=== PATIENT | female | born 1950 | race Caucasian/White ===

== ENCOUNTER 2019-02-15 06:51 | Observation (INO) ==
--- NOTE | 2019-02-15 07:32 | Anesthesia Evaluation PreOp ---
Date of Encounter: 02/15/19 Time of Encounter: 07:30 - Past History Planned Operation: Bronchoscopy Cardiac History: HTN, Hyperlipidemia Pulmonary History: Former smoker, COPD (on oxygen 2L prn and at night) DEPUTY CONTROLLER History: Other (anxiety, depression) Other Medical History: Diabetes Type II, Thyroid (hyperthyroidism, treated with radioactive iodine and is now hypothyroid), GERD, Other (gastic ulcer) Anesthesia History: No Prior Anesthetic Complications, Past Anesthesia (axel, csection x3, hysterectomy, RICHAR, appy, christy cataract, R fibular fx) Alcohol Use: none Drug use: none Medications and Allergies Albuterol Sulfate [Proair Hfa] 2 puff IH QID PRN 12/04/15 [History] Atorvastatin [Lipitor] 40 mg PO DAILY 12/04/15 [History] BuPROPion XL (24 HR) [Wellbutrin Xl] 300 mg PO QAM 12/04/15 [History] Canagliflozin [Invokana] 300 mg PO DAILY 12/04/15 [History] Fluticasone Propionate Nasal [Flonase] 50 mcg NS DAILY 12/04/15 [History] Gabapentin [Neurontin] 600 mg PO BID 12/04/15 [History] Gabapentin [Neurontin] 900 mg PO QPM 12/04/15 [History] Glimepiride [Amaryl] 2 mg PO QAM 12/04/15 [History] Ipratropium/Albuterol Neb [Duoneb] 3 ml IH Q6HR PRN 12/04/15 [History] Levothyroxine [Synthroid] 125 mcg PO QAM 12/04/15 [History] Lisinopril/Hydrochlorothiazide [Zestoretic 20-25 mg Tablet] 1 each PO DAILY 12/04/15 [History] Loratadine [Claritin] 10 mg PO DAILY 12/04/15 [History] Montelukast [Singulair] 10 mg PO QPM 12/04/15 [History] Omeprazole [PriLOSEC] 20 mg PO DAILY 12/04/15 [History] Oxygen 2 l NS HS 12/04/15 [History] Paroxetine [Paxil] 40 mg PO QAM 12/04/15 [History] Roflumilast [Daliresp] 500 mcg PO DAILY 12/04/15 [History] Sitagliptin Phos/Metformin HCl [Janumet 50-1,000 mg Tablet] 1 each PO BID 12/04/15 [History] Tiotropium [Spiriva] 18 mcg IH DAILY 12/04/15 [History] Tizanidine HCl 2 mg PO BID 12/04/15 [History] Budesonide/Formoterol 80/4.5 [Symbicort 80/4.5] 2 puff IH BIDR inhaler 12/10/15 [Rx] Heparin 5,000 unit SQ BID 10 Days vial 12/10/15 [Rx] Insulin LISPRO [HumaLOG] 0 units SQ HS #0 vial 12/10/15 [Rx] Insulin LISPRO [HumaLOG] 0 units SQ TIDAC #0 vial 12/10/15 [Rx] Levofloxacin [Levaquin] 750 mg PO Q48H #5 tablet 12/10/15 [Rx] Polyethylene Glycol 3350 [MiraLAX] 17 gm PO DAILY #0 powd.pack 12/10/15 [Rx] predniSONE [PredniSONE] 40 mg PO DAILY 7 Days tablet 12/10/15 [Rx] Allergy/AdvReac Type Severity Reaction Status Date / Time adenosine Allergy Difficulty Verified 12/04/15 13:49 Breathing - Meds/Allergy Pre-op Review Medications Reviewed: Yes Allergies Reviewed: Yes Beta Blockers on Current Med List: No Anesthesia Results - Labs Laboratory Tests 02/02/19 13:11 WBC 9.5 Hgb 13.5 Hct 43.1 Plt Count 232 - Imaging EKG: report reviewed (SINUS RHYTHM RIGHT BUNDLE BRANCH BLOCK Electronically Signed On 02-03-2019 15:23:51 EDT by Maritza Robertson) Additional studies: ECHO 01/2018 Impressions: LVEF 60%. Mild left ventricular diastolic dysfunction. Normal right ventricular structure and function. No significant valvular dysfunction. No pulmonary hypertension. Anesthesia Exam O2 Sat Height 1.55 m Weight 78.925 kg O2 Sat by Pulse Oximetry 91 Vital Signs Temp Pulse Resp BP Pulse Ox 98.1 F 83 18 135/69 91 02/15/19 07:13 02/15/19 07:13 02/15/19 07:13 02/15/19 07:13 02/15/19 07:13 Weight: 75kg NPO (# of Hours): MN - HEENT Pupil (Motor): Pupils equal, EOMI Mallampati: II Teeth: Edentulous Oral Opening: Greater than 3 - DEPUTY CONTROLLER LOC: Oriented DEPUTY CONTROLLER Motor: Normal RUE, Normal LUE, Normal RLE, Normal LLE, Normal Face DEPUTY CONTROLLER Sensory: Normal: RUE, LUE, RLE, LLE, Face - Cardiac Rhythm: Regular - Pulmonary Breath Sounds: bilateral Clear Respiratory Effort: Symmetrical Anesthesia Assess/Plan ASA Score: 4 Level of consciousness: Cooperative Anesthetic Plan: General Monitoring Plan: Standard Monitors Recovery Plan: PACU
[2019-02-15] MEDS: Ringers Solution, Lactated 1,000 ML IVC SCH ×2 (07:33→23:39)
[2019-02-15] MEDS ORDERED: Albuterol 2.5 MG/3 ML NEBULIZER ONE ×2 (07:43→09:44)
[2019-02-15] MEDS ORDERED: Albuterol 2.5 MG/3 ML NEBULIZER IH ONE ×2 (07:49→09:44)
[2019-02-15] MEDS ORDERED: methylPREDNISolone 125 MG/2 ML VIAL IVP ONE (09:15)
[2019-02-15] MEDS ORDERED: methylPREDNISolone 125 MG/2 ML VIAL ONE (09:18)
[2019-02-15 10:39] LABS: Source of Body Fluid BAL LUL
[2019-02-15 12:38] LABS: Appearance of Body Fluid Slightly Hazy (Clear)
[2019-02-15 12:39] LABS: Volume of Body Fluid 23 mL
[2019-02-15] MEDS ORDERED: *HR* Propofol 200 MG/20 ML VIAL IVP ONE (13:09)
[2019-02-15] MEDS ORDERED: *HR* Propofol 500 MG/50 ML BOTTLE IVC ONE (13:09)
[2019-02-15] MEDS ORDERED: Lidocaine -MPF 4% 5 ML AMPUL INFILT ONE (13:09)
[2019-02-15] MEDS ORDERED: *HR* Succinylcholine 200 MG/10 ML VIAL IVP ONE (13:09)
[2019-02-15] MEDS ORDERED: Ondansetron 4 MG/2 ML VIAL IVP ONE (13:09)
[2019-02-15] MEDS ORDERED: *HR* Phenylephrine 10 MG/ML VIAL IVC ONE (13:09)
[2019-02-15] MEDS ORDERED: Lidocaine 2% Syringe 100 MG/5 ML IV ONE (13:09)
[2019-02-15] MEDS ORDERED: EPHEDrine 50 MG/ML VIAL IVP ONE (13:09)
--- NOTE | 2019-02-15 14:14 | Anesthesia Evaluation Post Op ---
Date of Encounter: 02/15/19 Time of Encounter: 14:12 - Vital Signs Vital Signs: Vital Signs/O2 Sat/Glucose, Most Current Temp Pulse Resp BP Pulse Ox 02/15/19 13:11 97.7 F 96 16 108/71 92 02/15/19 11:05 113 18 104/79 90 02/15/19 10:35 115 20 114/78 91 - Lungs Lungs: Wheezes, Treatment Ordered - Airway Airway: Non-obstructed - Cardiovascular Regular Rate - Mental Status Mental Status: Alert & Oriented, Answers Appropriately - Nausea Vomiting Nausea Vomiting: Not Present - Hydration Hydration: Tolerates oral liquids - Discharge PostOp Status: Transfer Patient to floor (pt hypoxic post op with wheezing, shortness of breath and cough, Dr Ward treated with solumedrol and there was no improvement with additional albuterol and duoneb treatments, pt was admitted for further management)
[2019-02-15] MEDS ORDERED: Naloxone 0.4 MG/ML INJ IVP PRN (16:52)
--- NOTE | 2019-02-15 16:52 | Internal Med History&Physical ---
Date of Encounter: 02/15/19 Time of Encounter: 03:00 Internal Medicine - H&P: HPI Chief complaint: SOB History of present illness: Ms. Miranda is a 68 year old female COPD, diabetes, GERD, hyperlipidemia, hypertension, thyroid disease who was sent from the pulmonary bronchoscopy [facility] she underwent bronchoscopy for possible lung lesion. Postprocedure the patient started complaining of difficulty breathing , pulmonary requested the patient be admitted for observation due to a concern of bronchospasm, she will be admitted for observation for 24 hours. pulmonary also requested to start the patient on respiratory treatment and steroids. Past Med Surg Social Fam HX - Past Medical History Medical history: COPD, diabetes, GERD, hyperlipidemia, hypertension, thyroid disease Additional medical history: stomach ulcers Psychiatric history: anxiety, depression - Past Surgical History Surgical History: angioplasty/stent, , cataract, cholecystectomy, hysterectomy, orthopedic, other Additional surgical history: right fibula fx - heart cath with no stents - Social History Smoking Status: Former smoker Smokeless Tobacco Status: No Alcohol use: none Drug use: none - Family History Mother Family Member Ethnicity: Non- Living Status: Still Living Hx Family Cardiac Disorders: Yes Hx Family Respiratory Disorders: No Hx Family Cancer: No Hx Family GI Disorders: Yes Hx Family Endocrine Disorder: Yes Hx Family Neuromuscular Disorders: No Hx Family Neurologic Disorders: No Hx Family HEENT Disorders: No Hx Family Autoimmune Disorders: No Internal Medicine - H&P: Meds Albuterol Sulfate [Proair Hfa] 2 puff IH QID PRN 12/04/15 [History] Atorvastatin [Lipitor] 40 mg PO QPM 12/04/15 [History] Canagliflozin [Invokana] 300 mg PO DAILY 12/04/15 [History] Fluticasone Propionate Nasal [Flonase] 1 mcg NS DAILY 12/04/15 [History] Glimepiride [Amaryl] 2 mg PO QAM 12/04/15 [History] Ipratropium/Albuterol Neb [Duoneb] 3 ml IH Q6HR PRN 12/04/15 [History] Levothyroxine [Synthroid] 125 mcg PO QAM 12/04/15 [History] Loratadine [Claritin] 10 mg PO DAILY 12/04/15 [History] Montelukast [Singulair] 10 mg PO QPM 12/04/15 [History] Omeprazole [PriLOSEC] 20 mg PO DAILY 12/04/15 [History] Oxygen 2 l NS HS 12/04/15 [History] Tiotropium [Spiriva] 18 mcg IH DAILY 12/04/15 [History] Bupropion HCl [Wellbutrin Xl] 300 mg PO QAM 02/16/19 [History] Dulaglutide [Trulicity] 0.75 mg SQ FR 02/16/19 [History] Fluticasone/Umeclidin/Vilanter [Trelegy Ellipta 100-62.5-25] 1 puff PO DAILY 02/16/19 [History] Gabapentin 800 mg PO TID 02/16/19 [History] Lisinopril [Zestril] 5 mg PO DAILY 02/16/19 [History] PARoxetine HCl [Paroxetine HCl] 10 mg PO QAM 02/16/19 [History] PARoxetine HCl [Paroxetine HCl] 40 mg PO QAM 02/16/19 [History] Sitagliptin Phos/Metformin HCl [Janumet 50-500 mg Tablet] 1 tab PO DAILY 02/16/19 [History] Tizanidine HCl 4 mg PO 2-3XD PRN 02/16/19 [History] Triamcinolone Acet 0.1% CRM [Kenalog] 1 appl TP BID PRN 02/16/19 [History] Allergy/AdvReac Type Severity Reaction Status Date / Time adenosine Allergy Difficulty Verified 12/04/15 13:49 Breathing All Systems PM: A 10-system review of systems was performed and is negative for pertinent findings except as documented above in the HPI. - Constitutional Vitals: Temp Pulse Resp BP Pulse Ox 97.7 F 95 16 133/72 95 02/15/19 15:24 02/15/19 15:24 02/15/19 15:24 02/15/19 15:24 02/15/19 15:24 General appearance: Present: A&O X 3 Exam: See below - Head Head exam: Present: atraumatic, normocephalic - Eye Eye exam: Present: PERRL, conjuntiva pink, sclera anicteric Pupils: Present: PERRL - Neck Neck exam general surgery: Present: supple, trachea midline. Absent: lymphadenopathy - Respiratory Respiratory exam: Present: wheezes. Absent: accessory muscle use, rales, rhonchi - Cardiovascular Cardiovascular exam: Present: RRR, +S1, +S2. Absent: diastolic murmur, gallop, rubs, systolic murmur - GI/Abdominal GI/Abdominal exam: Present: normal bowel sounds, soft, no peritoneal signs. Absent: distended, tenderness - Extremities Exam Extremities exam: Present: warm, radial pulses palpable and symmetrical. Absent: calf tenderness, cyanotic, pedal edema - Neurological Exam Neurological exam: Present: CN II-XII intact, oriented X3, no focal deficits. Absent: pronater drift, facial droop, speech deficit - Skin Skin exam: Present: dry, intact Internal Med - H&P Results - Labs CBC & Chem 7: 02/16/19 04:15 02/16/19 04:15 - Impressions ITS Impressions Chest X-Ray 02/15/19 00:00 IMPRESSION: 1. No evidence of pneumothorax status post biopsy. 2. Patchy density involving the lingula and left base may represent known lung mass. D/ / 02/15/2019 08:56:49 Mando Arellano MD / earnold Interpreting Provider: Mando Arellano MD - Assessment and Plan (1) Bronchospasm Current Visit: Yes Status: Acute Assessment and plan: Pulmonary bronchoscopy [facility] she underwent bronchoscopy for possible lung lesion. Postprocedure the patient started complaining of difficulty breathing , pulmonary requested that the patient be admitted for observation due to a concern of bronchospasm, she will be admitted for observation for 24 hours. Pulmonary also requested to start the patient on respiratory treatment and steroids. As discussed with pulmonary very suggested for patient to be discharged on by mouth steroids over the next 5 days and then follow-up as an outpatient. (2) History of bronchoscopy Current Visit: Yes Status: Acute Assessment and plan: Bronchoscopy results revealed possible left lung lesion, vision or follow-up with pulmonary team as an outpatient (3) Hypertension Current Visit: Yes Status: Chronic Assessment and plan: We will continue home medication Qualifiers: Hypertension type: essential hypertension Qualified Code(s): I10 - Essential (primary) hypertension (4) COPD (chronic obstructive pulmonary disease) Current Visit: No Status: Chronic Assessment and plan: We will start the patient on dueneb start home inhalers Qualifiers: COPD type: COPD with acute exacerbation Qualified Code(s): J44.1 - Chronic obstructive pulmonary disease with (acute) exacerbation (5) Diabetes Current Visit: Yes Status: Acute Assessment and plan: We will continue home medication Glimepiride [Amaryl] 2 mg PO QAM and start the patient and insulin sliding scale was covered Qualifiers: Qualified Code(s): E11.9 - Type 2 diabetes mellitus without complications (6) GERD (gastroesophageal reflux disease) Current Visit: Yes Status: Acute Assessment and plan: We will continue Omeprazole [PriLOSEC] 20 mg PO DAILY Qualifiers: Qualified Code(s): K21.9 - Gastro-esophageal reflux disease without esophagitis (7) Hypothyroidism Current Visit: Yes Status: Acute Assessment and plan: We will continue home thyroxine Qualifiers: Qualified Code(s): E03.9 - Hypothyroidism, unspecified (8) DVT prophylaxis Current Visit: No Status: Acute Assessment and plan: The patient is ambulatory and most likely to be discharged in the next 24 hours (9) Hyperlipidemia Current Visit: Yes Status: Acute Assessment and plan: We will continue home statin Qualifiers: Qualified Code(s): E78.5 - Hyperlipidemia, unspecified - Time Spent With Patient Total time spent is greater than 50% in coordination of care (as documented) at patient's floor/unit and/or counseling patient:
[2019-02-15] MEDS ORDERED: Ondansetron 4 MG/2 ML VIAL IVP PRN (16:58)
[2019-02-15] MEDS ORDERED: Acetaminophen 325 MG TABLET PO PRN (16:58)
[2019-02-15] MEDS ORDERED: *HR* HYDROcodone/Acet 5/325 mg TABLET PO PRN (16:58)
[2019-02-15] MEDS: Ipratropium/Albuterol Neb 3 ML IH SCH ×2 (19:53→23:08)
[2019-02-15] MEDS ORDERED: tiZANidine 4 MG TABLET PO SCH (21:00)
[2019-02-15] MEDS: Gabapentin 400 MG CAPSULE PO SCH (21:02)
[2019-02-15] MEDS: Fluticasone Propionate Nasal 50 MCG/SPRAY BOTTLE NS SCH (21:02)
[2019-02-16] MEDS ORDERED: MethylPREDNISolone 40 MG/ML VIAL IVP SCH
[2019-02-16] MEDS ORDERED: Triamcinolone Acet 0.1% CRM 15 GM TUBE TP PRN (02:55)
[2019-02-16] MEDS ORDERED: Ipratropium/Albuterol Neb 3 ML IH PRN (02:55)
[2019-02-16] MEDS ORDERED: tiZANidine 4 MG TABLET PO PRN (02:55)
[2019-02-16] MEDS: Ipratropium/Albuterol Neb 3 ML IH SCH ×3 (03:42→11:21)
[2019-02-16 05:13] LABS: Basophils % 0.1 %; Hematocrit 42.7 % (35.3-44.9); Hemoglobin 13.5 g/dL (11.5-15.4); Immature Granulocytes % 0.4 % (0-4); Lymphocytes # 1.1 K/mcL (0.6-4.6); Lymphocytes % 7.5 %; Mean Corpuscular HGB Conc 31.6 g/dL (31.6-35.5); Mean Corpuscular Hemoglobin 28.5 pg (28.0-33.3); Mean Corpuscular Volume 90.1 fL (83.0-100.0); Mean Platelet Volume 10.5 fL (9.4-12.4); Monocytes # 0.5 K/mcL (0.0-1.3); Monocytes % 3.4 %; Platelet Count 239 K/mcL (140-400); Red Blood Count 4.74 M/mcL (3.82-4.97); Red Cell Distribution Width 13.6 % (11.5-14.5); Segmented Neutrophils % 88.6 %
[2019-02-16 05:31] LABS: Alanine Aminotransferase 14 Units/L (7-52); Albumin 4.2 g/dL (3.5-5.7); Albumin/Globulin Ratio 1.6 (1.1-2.2); Alkaline Phosphatase 86 Units/L (34-104); Aspartate Amino Transferase 15 Units/L (13-39); BUN/Creatinine Ratio 21 (6-26); Bilirubin,Total 0.3 mg/dL (0.3-1.0); Blood Urea Nitrogen 19 mg/dL (8-23); Carbon Dioxide 26 mEq/L (23-29); Chloride 102 mEq/L (98-107); Globulin 2.7 g/dL (2.4-3.5); Glucose 317 mg/dL (70-105); Magnesium 1.7 mg/dL (1.6-2.6); Osmolality,Calculated 298 (280-300); Sodium 137 mEq/L (136-145); Total Protein 6.9 g/dL (6.4-8.9); eGFR For Non-African Americans > 60 (> 60)
[2019-02-16] MEDS ORDERED: *HR* Glimepiride 2 MG TABLET PO SCH (08:00)
[2019-02-16] MEDS ORDERED: *HR* Metformin 500 MG TABLET PO SCH (08:00)
[2019-02-16] MEDS ORDERED: *HR* SitaGLIPtin 25 MG TABLET PO SCH (08:00)
[2019-02-16 08:07] VITALS: BP 117/70
[2019-02-16] MEDS: Gabapentin 400 MG CAPSULE PO SCH (08:40)
[2019-02-16] MEDS: Fluticasone Propionate Nasal 50 MCG/SPRAY BOTTLE NS SCH (08:42)
[2019-02-16] MEDS ORDERED: NON-FORMULARY MEDICATION 1 EACH EACH (Gabapentin 800 MG) PO SCH (09:00)
[2019-02-16] MEDS ORDERED: Tiotropium 18 MCG inhalation IH SCH (09:00)
[2019-02-16] MEDS ORDERED: BuPROPion XL (24 HR) 150 MG TABLET PO SCH (09:00)
[2019-02-16] MEDS ORDERED: Loratadine 10 MG TABLET PO SCH (09:00)
[2019-02-16] MEDS ORDERED: NON-FORMULARY MEDICATION 1 EACH EACH (Bupropion Hcl [Wellbutrin Xl] 300 MG) PO SCH (09:00)
[2019-02-16] MEDS ORDERED: PAROXETINE HCL 10 MG PO SCH (09:00)
[2019-02-16] MEDS ORDERED: predniSONE 20 MG TABLET PO SCH (09:00)
[2019-02-16] MEDS ORDERED: TRELEGY ELLIPTA PO SCH (09:00)
--- NOTE | 2019-02-16 11:28 | Discharge Summary ---
<Ramon Montanez R - Last Filed: 02/16/19 11:26> - NOTES TO OUTPATIENT PROVIDER Notes to Outpatient Provider: Admitted with bronchospasm after bronchoscopy. Given prednisone for a total of 5 day burst. Orders not resulted at time of discharge: Pending orders 02/15/19 XR fluoroscopy <1 hr [XR] Routine 02/15/19 08:36 AFB Culture, Respiratory [TB] Routine AFB Smear [TB] Routine Culture,Respiratory [RM] Routine Fungal Culture [MYC] Routine Herpes Simplex PCR Body Fl Routine Legionella Culture [RM] Routine Resp.Virus Panel,Body Fl Routine Date of Encounter: 02/16/19 Time of Encounter: 10:03 - Discharge Diagnosis (1) Bronchospasm Priority: Primary Status: Acute (2) History of bronchoscopy Priority: Secondary Status: Acute (3) COPD (chronic obstructive pulmonary disease) Priority: Secondary Status: Chronic Qualifiers: COPD type: emphysema Emphysema type: unspecified Qualified Code(s): J43.9 - Emphysema, unspecified (4) Hypertension Priority: Secondary Status: Chronic Qualifiers: Hypertension type: essential hypertension Qualified Code(s): I10 - Essential (primary) hypertension (5) Diabetes Priority: Secondary Status: Acute Qualifiers: Diabetes mellitus type: type 2 Diabetes mellitus senior care insulin use: without senior care use Diabetes mellitus complication status: with neurologic complications Diabetes mellitus complication detail: with polyneuropathy Qualified Code(s): E11.42 - Type 2 diabetes mellitus with diabetic polyneuropathy (6) GERD (gastroesophageal reflux disease) Priority: Secondary Status: Acute Qualifiers: Esophagitis presence: esophagitis presence not specified Qualified Code(s): K21.9 - Gastro-esophageal reflux disease without esophagitis (7) Hypothyroidism Priority: Secondary Status: Acute Qualifiers: Hypothyroidism type: unspecified Qualified Code(s): E03.9 - Hypothyroidism, unspecified (8) Hyperlipidemia Priority: Secondary Status: Acute Qualifiers: Hyperlipidemia type: unspecified Qualified Code(s): E78.5 - Hyperlipidemia, unspecified Hospital course: Ms. Miranda is a 68 year old female with PMH of COPD, DM2, GERD, HLD, HTN, and hypothyroidism, who was sent from the pulmonary bronchoscopy [facility] after she underwent bronchoscopy for possible lung lesion. Postprocedure the patient started complaining of difficulty breathing, pulmonary requested the patient be admitted for observation due to a concern of bronchospasm, she will be admitted for observation for 24 hours. Pulmonary also requested to start the patient on respiratory treatment and steroids. CXR showed pathcy density involving the lingula and left lower lobe in the location of known lung mass. She was observed overnight, received breathing treatments, and steroids. Had not acute events. Breathing is improving, but still reports mild cough and congestion. She will be given mucinex to use as needed for congestion. She will continue prednisone for 3 more days after discharge. She can follow-up with pulmonology as an out-patient. Discharge discussed with: patient - Time Spent with Patient Total time spent providing and/or coordinating discharge services: - Discharge Medications Prescriptions: New GuaiFENesin ER [Mucinex] 600 mg PO BID PRN #60 tbbp.12hr PRN Reason: Congestion Lisinopril-HCTZ 10-12.5 [Prinzide 10-12.5] 2 each PO DAILY tablet predniSONE [PredniSONE] 40 mg PO DAILY #3 tablet Continued Loratadine [Claritin] 10 mg PO DAILY Atorvastatin [Lipitor] 40 mg PO QPM Tiotropium [Spiriva] 18 mcg IH DAILY Oxygen 2 l NS HS Omeprazole [PriLOSEC] 20 mg PO DAILY Montelukast [Singulair] 10 mg PO QPM Ipratropium/Albuterol Neb [Duoneb] 3 ml IH Q6HR PRN PRN Reason: Shortness Of Breath Levothyroxine [Synthroid] 125 mcg PO QAM Glimepiride [Amaryl] 2 mg PO QAM Fluticasone Propionate Nasal [Flonase] 1 mcg NS DAILY Canagliflozin [Invokana] 300 mg PO DAILY Albuterol Sulfate [Proair Hfa] 2 puff IH QID PRN PRN Reason: Shortness Of Breath Bupropion HCl [Wellbutrin Xl] 300 mg PO QAM Dulaglutide [Trulicity] 0.75 mg SQ FR Fluticasone/Umeclidin/Vilanter [Trelegy Ellipta 100-62.5-25] 1 puff PO DAILY Gabapentin 800 mg PO TID Lisinopril [Zestril] 5 mg PO DAILY PARoxetine HCl [Paroxetine HCl] 10 mg PO QAM PARoxetine HCl [Paroxetine HCl] 40 mg PO QAM Sitagliptin Phos/Metformin HCl [Janumet 50-500 mg Tablet] 1 tab PO DAILY Tizanidine HCl 4 mg PO 2-3XD PRN PRN Reason: Muscle Spasm Triamcinolone Acet 0.1% CRM [Kenalog] 1 appl TP BID PRN PRN Reason: Rash Home Medications: Albuterol Sulfate [Proair Hfa] 2 puff IH QID PRN 12/04/15 [History] Atorvastatin [Lipitor] 40 mg PO QPM 12/04/15 [History] Canagliflozin [Invokana] 300 mg PO DAILY 12/04/15 [History] Fluticasone Propionate Nasal [Flonase] 1 mcg NS DAILY 12/04/15 [History] Glimepiride [Amaryl] 2 mg PO QAM 12/04/15 [History] Ipratropium/Albuterol Neb [Duoneb] 3 ml IH Q6HR PRN 12/04/15 [History] Levothyroxine [Synthroid] 125 mcg PO QAM 12/04/15 [History] Loratadine [Claritin] 10 mg PO DAILY 12/04/15 [History] Montelukast [Singulair] 10 mg PO QPM 12/04/15 [History] Omeprazole [PriLOSEC] 20 mg PO DAILY 12/04/15 [History] Oxygen 2 l NS HS 12/04/15 [History] Tiotropium [Spiriva] 18 mcg IH DAILY 12/04/15 [History] Bupropion HCl [Wellbutrin Xl] 300 mg PO QAM 02/16/19 [History] Dulaglutide [Trulicity] 0.75 mg SQ FR 02/16/19 [History] Fluticasone/Umeclidin/Vilanter [Trelegy Ellipta 100-62.5-25] 1 puff PO DAILY 02/16/19 [History] Gabapentin 800 mg PO TID 02/16/19 [History] GuaiFENesin ER [Mucinex] 600 mg PO BID PRN #60 tbbp.12hr 02/16/19 [Rx] Lisinopril [Zestril] 5 mg PO DAILY 02/16/19 [History] Lisinopril-HCTZ 10-12.5 [Prinzide 10-12.5] 2 each PO DAILY tablet 02/16/19 [Rx] PARoxetine HCl [Paroxetine HCl] 10 mg PO QAM 02/16/19 [History] PARoxetine HCl [Paroxetine HCl] 40 mg PO QAM 02/16/19 [History] Sitagliptin Phos/Metformin HCl [Janumet 50-500 mg Tablet] 1 tab PO DAILY 02/16/19 [History] Tizanidine HCl 4 mg PO 2-3XD PRN 02/16/19 [History] Triamcinolone Acet 0.1% CRM [Kenalog] 1 appl TP BID PRN 02/16/19 [History] predniSONE [PredniSONE] 40 mg PO DAILY #3 tablet 02/16/19 [Rx] Allergies/Adverse Reactions: Allergy/AdvReac Type Severity Reaction Status Date / Time adenosine Allergy Difficulty Verified 12/04/15 13:49 Breathing Date of admission: 02/15/19 13:08 Primary care physician: Karie Olivares Discharging clinician: Ramon Montanez Anticipated date of discharge: 02/16/19 - Constitutional Vitals: Temp Pulse Resp BP Pulse Ox 97.7 F 101 19 117/70 90 02/16/19 08:04 02/16/19 08:04 02/16/19 08:04 02/16/19 08:04 02/16/19 08:04 General appearance: Present: A&O X 3 Exam: GEN: No acute distress, A&O3 HEAD: Atraumatic, normocephalic EYES: Pupils symmetric, sclera white, conjunctiva pink HEART: RRR, normal S1 and S2, no murmurs LUNGS: Wheezes bilaterally, non-labored breathing, no rhonchi or crackles ABD: Soft, nontender, nondistended, bowel sounds present EXT: No edema noted, pulses 2/4 NEURO: No focal deficits, cooperative with exam - Patient Status Disposition: Home, Self-Care Condition: Fair Functional capacity at discharge: independent ambulation Overall status at discharge: patient is progressing back to baseline - Discharge Instructions Instructions: Prednisone (By mouth), Guaifenesin (By mouth), Acute Kidney Injury (DC), Hypothyroidism (DC), Diabetes Mellitus Type 2 in Adults (DC), Gastroesophageal Reflux Disease (DC), Chronic Hypertension (DC), Hyperlipidemia (DC), Impaired Kidney Function (DC) Follow Up With: Karie Olivares MD [Primary Care Provider] - 02/22/19 11:15 am Garrett Ward MD [Partnered Physician] - (Your appt has been requested. The office will call you with a follow up appt.) Additional Instructions: Please take prednisone 40mg for 3 more days You may use mucinex as needed for cough and congestion Continue to use your home O2 as needed Please follow-up with your primary care physician in 1-2 weeks Please follow-up with pulmonology Please seek medical attention if your symptoms return or worsen - Diet and Activity Activity: increase activity as tolerated Diet: diabetic diet, low fat, low cholesterol <Vel Fan - Last Filed: 02/16/19 12:17> Date of Encounter: 02/16/19 Date of admission: 02/15/19 13:08 Primary care physician: Karie Olivares - Attending Attestation Patient seen and examined. I agree with the discharge plan as documented above by the resident. In summary, pt w COPD and chronic hypoxic respiratory failure presented after bronchoscopy with cough and wheezing, with Pulmology directly admitting the patient for observation and IV steroids and frequent nebs given concern for bronchospasm. Overnight, the patient did have persistent wheezing and coughing, but is not requiring additional O2 and reports feeling much closer to baseline than immediately after the procedure. Pt will discharge on short PO prednisone course and follow up soon with Pulm Dr Ward.
[2019-02-17 01:55] LABS: Influenza A PCR Body Fluid NOT DETECTED; Influenza B PCR Body Fluid NOT DETECTED; RVP Body Fluid Source BAL
[2019-02-17] MEDS ORDERED: Dulaglutide [Trulicity] 0.75 MG SQ SCH (02:55)
[2019-02-17 11:46] LABS: RSV PCR Body Fluid NOT DETECTED
[2019-02-17 14:43] LABS: HSV Source BAL
== END 2019-02-16 13:02 | disposition home or self-care (01) ==
LOC: ENDPAV 06:51 → 3BNU 06:51 → ENDPAV 12:30 → SUATTDRO 13:08
PROVIDERS: ADMIT Internal Medicine Nephrology; ATTEND Internal Medicine